=== PATIENT | female | born 1995 | race African-American/Black ===

== ENCOUNTER 2020-06-04 22:21 | Emergency (ER) | payer MEDICAID, OTHER ==
[~2020-06-04] VITALS: Ht 160 cm; Wt 49.9 kg
[~2020-06-04 22:21] MED LIST: COGENTIN1 MG PO; DEPO-PROVE150 MG/11 IM; SAPHRIS5 MG SL
--- NOTE | 2020-06-04 22:58 | Emergency Room Report ---
History of Present Illness General Chief Complaint: Lower Extremity Injury Source: Patient Present Illness [facility] This a 25-year-old female with no past medical history. She presents with chief complaint of left ankle pain. She was watering her lawn this evening. She rolled her ankle because it was uneven pavement. She complaining of left ankle pain. Initially try to bear weight on it but it started hurting. Now with some swelling to the ankle and foot area. Pain is 9 out of 10. Worse with bearing weight. Better with rest. Did not take anything for it. No other injury. Did not pass out. Allergies: Coded Allergies: No Known Allergies (Unverified , 06/03/13) COVID-19 Screening Contact w/high risk pt: No Experienced COVID-19 symptoms?: No COVID-19 Testing performed [employer]ERSON [employer]SETS: No Patient History Past Medical History: see triage record, old chart reviewed Past Surgical History: none Pertinent Family History: none Social History: Denies: smoking Last Menstrual Period: 05/27 Now: No Immunizations: other Reviewed Nursing Documentation: PMH: Agreed; PSxH: Agreed Nursing Documentation-PMH Hx Asthma: Yes Review of Systems Eye: Denies: eye pain, blurred vision ENT: Denies: ear pain, nose congestion, throat swelling Respiratory: Denies: cough, shortness of breath Cardiovascular: Denies: chest pain, palpitations Gastrointestinal: Denies: abdominal pain, diarrhea, nausea, vomiting Musculoskeletal: Reports: joint pain, joint swelling; Denies: back pain Skin: Denies: rash Neurological: Denies: headache, numbness Endocrine: Denies: increased thirst, increased urine Hematologic/Lymphatic: Denies: easy bruising All Other Systems: negative except mentioned in HPI Physical Exam Vital Signs Date Time Temp Pulse Resp B/P (MAP) Pulse Ox O2 Delivery O2 Flow Rate FiO2 06/04/20 22:23 98.2 87 18 112/79 (90) 97 Room Air Vitals normal Sp02 EP Interpretation: reviewed, normal General Appearance: well appearing, no apparent distress, alert Head: normocephalic, atraumatic Eyes: bilateral eye PERRL, bilateral eye EOMI ENT: hearing grossly normal, normal pharynx Neck: full range of motion, supple, no meningismus Respiratory: chest non-tender, lungs clear, normal breath sounds Cardiovascular #1: regular rate, rhythm, no murmur Gastrointestinal: normal bowel sounds, non tender, no mass, no organomegaly, no bruit, non-distended Musculoskeletal: back normal, normal range of motion, other - Left ankle: There is tenderness and swelling over the anterior talofibular ligament. Ankle stable. No knee pain. Pulse normal. Sensation normal. Psychiatric: mood/affect normal Procedures Splinting Splinting : Consent: Verbal Location: left ankle Hand-Made Type: plaster Splint: poserior short Pre-Proc Neuro Vasc Exam: normal Post-Proc Neuro Vasc Exam: normal Patient Tolerated: Well Complications: None Medical Decision Making Diagnostic Impression: Primary Impression: Left ankle sprain Qualified Codes: S93.492A - Sprain of other ligament of left ankle, initial encounter ER Course Patient presents with soft tissue injury. No evidence of any fracture dislocation. Patient splinted. Will discharge home. Other X-Ray Diagnostic Results Other X-Ray Diagnostic Results : X-Ray ordered: Left ankle x-rays # of Views/Limited Vs Complete: 3 View Indication: Pain EP Interpretation: Yes Interpretation: no dislocation, no soft tissue swelling, no fractures Impression: No acute disease Electronically Signed by: Francesco Wilson MD Last Vital Signs Date Time Temp Pulse Resp B/P (MAP) Pulse Ox O2 Delivery O2 Flow Rate FiO2 06/04/20 22:23 98.2 87 18 112/79 (90) 97 Room Air Status: improved Disposition: HOME, SELF-CARE Condition: Stable Scripts Ibuprofen* (MOTRIN*) 600 Mg Tablet 600 MG ORAL Q6H PRN for For Pain, #30 TAB 0 Refills Prov: Francesco Wilson MD 06/04/20 Hydrocodone/Acetaminophen 5-325* (HYDROCODONE/ACETAMINOPHEN 5-325*) 1 Each Tablet 1 TAB ORAL Q6H PRN for For Pain, #20 TAB 0 Refills Prov: Francesco Wilson MD 06/04/20 Patient Instructions: Ankle Sprain Additional Instructions: Rest. Use crutches as needed. Ice pack to area. Wear your splint for comfort. Follow-up with your doctor in 7 days for reevaluation if still painful. Return if worse. Francesco Wilson MD Jun 04, 2020 22:58
[2020-06-04] MEDS ORDERED: HYDROcodone/Acetamin 5/325 tab ORAL ONE (23:00)
[2020-06-04] MEDS ORDERED: IBUPROFEN600 M1 ORAL (23:12)
[2020-06-04] MEDS ORDERED: HYDROCODON-ACE1 EA15 ORAL (23:12)
[2020-06-04 23:25] VITALS: BP 112/79
--- NOTE | 2020-06-04 23:36 | Diagnostic Imaging Report ---
LEFT ANKLE, 3 views INDICATION: Pain, trauma COMPARISON: FINDINGS: 3 views of the left ankle are obtained. Bony structures are intact. Bone mineralization is within normal limits. Joint spaces are preserved. Soft tissues are within normal limits. No radio-opaque foreign bodies. IMPRESSION: No acute fracture or subluxation identified.
== END 2020-06-04 23:25 | disposition home or self-care (01) ==
LOC: EMR 22:56
DX: S93.492A Sprain of other ligament of left ankle, initial encounter (principal); X58.XXXA Exposure to other specified factors, initial encounter; Y92.9 Unspecified place or not applicable
CPT/HCPCS: 29515; 73610; Z7502; 99283